=== PATIENT | male | born 1965 | race Two or more races ===

== ENCOUNTER → 2019-01-16 | Outpatient (CLI) | payer BC ==
--- NOTE | 2019-01-17 13:07 | CARD ---
MR#: [id number] Date of Study: 01/16/2019 Ordering Physician: SANJAY ERAZO, Referring Physician: SANJAY ERAZO Tech: Annie Salazar RDCS APPROVED REPORT EXAM: Two-dimensional and M-mode echocardiogram with Doppler and color Doppler. Other Information Quality : Technically LimitedHR: 60bpm Rhythm : NSRTechnically limited study due to history of heart repair. INDICATION Arrhythmia 2D DIMENSIONS RVDd3.1 (2.9-3.5cm)Left Atrium(2D)3.0 (1.6-4.0cm) IVSd0.9 (0.7-1.1cm)Aortic Root(2D)3.4 (2.0-3.7cm) LVDd4.2 (3.9-5.9cm)LVOT Diameter2.7 (1.8-2.4cm) PWd1.3 (0.7-1.1cm)LVDs3.5 (2.5-4.0cm) FS (%) 16.7 %SV27.6 ml LVEF(%)40.0 (>50%) M-Mode DIMENSIONS RVDd3.10 (2.1-3.2cm)Left Atrium(MM)2.75 (2.5-4.0cm) IVSd1.08 (0.7-1.1cm)Aortic Root3.36 (2.2-3.7cm) LVDd4.74 (4.0-5.6cm)PWd1.16 (0.7-1.1cm) FS (%) 20 %LVDs3.79 (2.0-3.8cm) ESV(Teich)61.4 mlLVEF(%)41 (>50%) Aortic Valve AoV Peak Toni.82.4cm/sAoV VTI19.3cm AO Peak GR.2.7mmHgLVOT Peak Toni.61.1cm/s LVOT VTI 13.39cmAO Mean GR.1mmHg SCOOBY (VMAX)4.26ng9HQV (VTI)4.03cm2 Mitral Valve MV E Bwdypbrr42.4cm/sMV DECEL [id number] MV A Imaksvod40.5cm/sE/A Ratio1.3 Pulmonary Valve PV Peak Zwkobdkm132.8cm/sPV Peak Grad.22mmHg Tricuspid Valve TR P. Hjygigey253bl/sRAP XJSABMST0bvMt TR Peak Gr.51glMyHKYU48qsTx LEFT VENTRICLE The left ventricle is normal size. There is normal left ventricular wall thickness. The left ventricu lar systolic function is low normal. EF 50% Septal motion consistent with post-operative state. There is mild global hypokinesis. Tissue Doppler imaging reveals mild left ventricular diastolic dysfuncti on. RIGHT VENTRICLE The right ventricle is moderately dilated. There is normal right ventricular wall thickness. The righ t ventricular systolic function is normal. Pacer lead noted in RV/RA. ATRIA The left atrium is mildly dilated. The right atrium is moderately dilated. The interatrial septum is intact with no evidence for an atrial septal defect or patent foramen ovale as noted on 2-D or Dopple r imaging. AORTIC VALVE The aortic valve is not well visualized. Doppler and Color Flow revealed trace aortic regurgitation. There is no significant aortic valvular stenosis. MITRAL VALVE Not well visualized. There is no evidence of mitral valve prolapse. There is no mitral valve stenosis . Doppler and Color-flow revealed trace mitral regurgitation. TRICUSPID VALVE Not well visualized. Doppler and Color Flow revealed mild tricuspid regurgitation. There is no tricus pid valve prolapse or vegetation. There is no tricuspid valve stenosis. PULMONIC VALVE The pulmonic valve is not well visualized. It appears calcified. Doppler and Color Flow revealed mode rate pulmonic valvular regurgitation. There is at least moderate pulmonic stenosis on limited evaluat ion GREAT VESSELS The aortic root is normal in size. The ascending aorta is normal in size. The IVC is normal in size a nd collapses >50% with inspiration. PERICARDIAL EFFUSION There is no evidence of significant pericardial effusion. Critical Notification Critical Value: No <Conclusion> The left ventricular systolic function is low normal. EF 50% Septal motion consistent with post-operative state. There is mild global hypokinesis. Pacer lead noted in RV/RA. The right ventricle is moderately dilated. The pulmonic valve is not well visualized. It appears calcified. 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
== END | disposition home or self-care (01) ==
LOC: ECHO 09:40
PROVIDERS: ATTEND Internal Medicine Cardiovascular Disease
DX: I08.8 Other rheumatic multiple valve diseases (principal); I47.2 Ventricular tachycardia
CPT/HCPCS: 93306

== ENCOUNTER → 2020-08-04 | Outpatient (CLI) | payer BC ==
--- NOTE | 2020-08-04 18:44 | CARD ---
MR#: [id number] Date of Study: 08/04/2020 Ordering Physician: SANJAY HUERTA, Referring Physician: SANJAY HUERTA, Tech: Va Griggs [facility] APPROVED REPORT EXAM: Two-dimensional and M-mode echocardiogram with Doppler and color Doppler. Other Information Quality : AverageHR: 61bpm INDICATION Tetralogy of Fallot Surgery/Intervention Pacemaker: Date: 2017 2D DIMENSIONS Left Atrium(2D)4.4 (1.6-4.0cm)IVSd0.9 (0.7-1.1cm) Aortic Root(2D)3.3 (2.0-3.7cm)LVDd4.8 (3.9-5.9cm) LVOT Diameter2.1 (1.8-2.4cm)PWd0.8 (0.7-1.1cm) LVDs2.9 (2.5-4.0cm)FS (%) 39.3 % SV74.3 mlLVEF(%)69.7 (>50%) Aortic Valve AoV Peak Toni.107.7cm/sAoV VTI27.2cm AO Peak GR.4.6mmHgLVOT Peak Toni.98.3cm/s LVOT VTI 22.30cmAO Mean GR.3mmHg SCOOBY (VMAX)3.04oi0VDM (VTI)2.87cm2 Mitral Valve MV E Qyrccote29.2cm/sMV DECEL ELSI887iw MV A Sagmolbj24.7cm/sE/A Ratio1.0 Pulmonary Valve PV Peak Ykavxlhp433.8cm/sPV Peak Grad.13mmHg Tricuspid Valve TR P. Zyxjbnwc386ag/sRAP [id number] TR Peak Gr.67onUiZUZX99dqXd LEFT VENTRICLE The left ventricle is normal size. There is normal left ventricular wall thickness. The left ventricu lar systolic function is low normal. The Ejection Fraction is 50%. Septal motion consistent with cond uction abnormality. No left ventricle thrombus noted on this study. RIGHT VENTRICLE The right ventricle is moderately dilated. The right ventricle is mildly to moderately hypertrophied. Systolic function is mildly to moderately reduced. ATRIA The left atrium size is normal. The right atrium size is normal. The interatrial septum is intact wit h no evidence for an atrial septal defect or patent foramen ovale as noted on 2-D or Doppler imaging. AORTIC VALVE The aortic valve is not well visualized. Doppler and Color Flow revealed trace aortic regurgitation. There is no significant aortic valvular stenosis. Calculated aortic valve area is 3.6 cm2 with maximu m pressure gradient of 5 mmHg and mean pressure gradient of 3 mmHg. MITRAL VALVE The mitral valve is normal in structure and function. There is no evidence of mitral valve prolapse. There is no mitral valve stenosis. Doppler and Color-flow revealed trace mitral regurgitation. TRICUSPID VALVE The tricuspid valve is normal in structure and function. Doppler and Color Flow revealed trace tricus pid regurgitation with an estimated PAP of 34 mmHg. There is no tricuspid valve stenosis. PULMONIC VALVE The pulmonic valve is mildly thickened. There is no pulmonic valvular stenosis. GREAT VESSELS The aortic root is normal in size. The IVC is normal in size and collapses >50% with inspiration. PERICARDIAL EFFUSION There is no evidence of significant pericardial effusion. Critical Notification Critical Value: No <Conclusion> The left ventricular systolic function is low normal. The Ejection Fraction is 50%. Septal motion consistent with conduction abnormality. The right ventricle is moderately dilated. Pacer lead noted RA/RV. Trace mitral regurgitation. Trace tricuspid regurgitation with an estimated PAP of 34 mmHg. There is no evidence of significant pericardial effusion. Signed by : Sanjay Huerta, Electronically Approved : 08/04/2020 18:43:57
== END ==
LOC: ECHO 08:46
PROVIDERS: ATTEND Internal Medicine Cardiovascular Disease
DX: Q21.3 Tetralogy of Fallot (principal); I51.7 Cardiomegaly; Z95.0 Presence of cardiac pacemaker
CPT/HCPCS: 93306